=== PATIENT | female | born 1970 | race Caucasian/White ===

== ENCOUNTER 2016-10-10 08:51 | Emergency (ER) | payer OTHER ==
[2016-10-10] MEDS ORDERED: NS 0.9% 1000 ML* 1,000 ML IV ONE (09:19)
[2016-10-10] MEDS ORDERED: Acetaminophen TAB* 325 MG PO ONE (09:19)
[2016-10-10 09:34] LABS: Hematocrit 36 % (35-47); Hemoglobin 12.4 g/dl (12.0-16.0); Mean Corpuscular HGB Conc 34 g/dl (31-36); Mean Corpuscular Hemoglobin 28 pg (27-31); Mean Corpuscular Volume 83 fL (80-97); Mean Platelet Volume 10 um3 (7.4-10.4); Red Blood Count 4.37 10^6/ul (4.0-5.4); Red Cell Distribution Width 14 % (10.5-15); White Blood Count 7.8 10^3/ul (3.5-10.8)
[2016-10-10 09:49] LABS: ALT 15 U/L (7-52); AST 25 U/L (13-39); Alkaline Phosphatase 46 U/L (34-104); Anion Gap 5 mmol/L (2-11); BUN/Creatinine Ratio 20.7 (8-20); Blood Urea Nitrogen 17 mg/dL (6-24); C Reactive Protein < 1.00 mg/L (< 5.00); CO2 Carbon Dioxide 27 mmol/L (22-32); Calcium 9.4 mg/dL (8.6-10.3); Chloride 103 mmol/L (101-111); EGFR African American 96.5 (>60); EGFR Non-African American 75.1 (>60); Globulin 2.9 g/dL (2-4); Glucose 99 mg/dL (70-100); Lipase 47 U/L (11.0-82.0); Potassium 4.4 mmol/L (3.5-5.0); Sodium 135 mmol/L (133-145); Total Protein 6.9 g/dL (6.4-8.9)
[2016-10-10 10:05] LABS: Urine Bilirubin Negative (Negative); Urine Glucose Negative (Negative); Urine Nitrite Negative (Negative)
--- NOTE | 2016-10-10 10:05 | RAD ---
INDICATION: LEFT flank pain. Possible urolithiasis. Recent fall. Possible sacroiliac joint pathology. COMPARISON: June 20, 2015 RIGHT upper quadrant ultrasound. TECHNIQUE: Multidetector CT images were obtained from the lung bases to the ischial tuberosities. Evaluation of the viscera is limited without IV contrast. Multiplanar reformation. REPORT: Unremarkable visualized inferior thorax. The unenhanced liver, gallbladder, pancreas, and spleen are unremarkable. Small sliding type hiatal hernia. No CT abnormality of the small bowel. Unremarkable retrocecal appendix most conspicuous on coronal reformatted images 31-33. Moderate stool in the colon. No suspicious finding of the colon. Physiologic small volume of free pelvic fluid. Negative for free air or hernias. Unremarkable adrenal glands. Unremarkable kidneys, ureters, and partially distended urinary bladder. Negative for hydronephrosis or visualized urolithiasis. Unremarkable anteverted uterus and adnexal regions. No lymphadenopathy visualized. Negative for lumbar sacral spine or pelvic fracture or articular malalignment. No suspicious focal osseous lesions. Negative for superficial or deep soft tissue plane hematoma. IMPRESSION: 1. Normal appendix documented. 2. Negative for urolithiasis or hydronephrosis. 3. Physiologic small volume of free pelvic fluid. 4. Negative for fracture or articular malalignment within the [id number].
[2016-10-10 11:16] VITALS: BP 110/70
--- NOTE | 2016-10-10 11:21 | ED ---
Back Pain - HPI Summary HPI Summary: Pt here w/ Lt flank pain since 900 last night. Constant but worse w/ movements. Painful on car ride over. Denies urinary sx. Drink many caffeinated beverages per day, mostly coffee and iced tea. Reports she's cut down on soda - only 20oz of pepsi per day now. No known injury - sits for many hours at work. Denies numbness, tingling, weakness into LE's. No h/o back issues although reports a h/ o falling on this side in April 2016 (slipped on ice) - no residual issues then. - History of Current Complaint Chief Complaint: EDFlankPain Stated Complaint: LT FLANK PAIN Time Seen by Provider: 10/10/16 09:03 Hx Obtained From: Patient Pain Intensity: 2 Pain Scale Used: 0-10 Numeric - Allergies/Home Medications Allergies/Adverse Reactions: Allergies Allergy/AdvReac Type Severity Reaction Status Date / Time Aspirin Allergy Unknown Verified 02/04/16 06:45 Reaction Details Bupropion [From Wellbutrin] Allergy Unknown Verified 02/04/16 06:45 Reaction Details Ibuprofen Allergy Swelling Verified 02/04/16 06:45 Venlafaxine [From Effexor] Allergy Unknown Verified 02/04/16 06:45 Reaction Details PMH/Surg Hx/FS Hx/Imm Hx Previously Healthy: Yes Endocrine/Hematology History: Reports: Hx Thyroid Disease - HYPO-ON MEDICATION FOR Denies: Hx Diabetes Cardiovascular History: Reports: Other Cardiovascular Problems/Disorders - HISTORY OF LOW BLOOD PRESSURE Denies: Hx Hypertension, Hx Pacemaker/ICD GI History: Denies: Hx Crohn's Disease, Hx Diverticulosis, Hx Gall Bladder Disease, Hx Gastroesophageal Reflux Disease, Hx Gastrointestinal Bleed, Hx Hiatal Hernia, Hx Irritable Bowel, Hx Ulcer History: Denies: Hx Kidney Infection, Hx Kidney Stones Sensory History: Reports: Hx Contacts or Glasses - CONTACTS-INSTRUCTS GIVEN Denies: Hx Hearing Aid Opthamlomology History: Reports: Hx Contacts or Glasses - CONTACTS-INSTRUCTS GIVEN Neurological History: Reports: Hx Migraine - MONTHLY,TREATS WITH ALEVE, Other Neuro Impairments/Disorders - ADD Psychiatric History: Denies: Hx Panic Disorder - Surgical History Surgery Procedure, Year, and Place: 1991 LT KNEE ARTHROSCOPIC. LEFT WRIST CARPAL TUNNEL RELEASE Hx Anesthesia Reactions: Yes - 06/2014-LOW BLOOD PRESSURE AND TOOK A FEW DAYS TO FEEL BACK TO NORMAL Infectious Disease History: No Infectious Disease History: Denies: Traveled Outside the [place] in Last 30 Days - Social History Occupation: Employed Full-time Alcohol Use: Rare Alcohol Amount: wine Substance Use Type: Reports: None Smoking Status (MU): Never Smoked Tobacco Have You Smoked in the Last Year: No Review of Systems Constitutional: Negative Negative: Fever, Chills Negative: Sore Throat Negative: Chest Pain Negative: Shortness Of Breath, Cough Gastrointestinal: Other - see HPI Positive: Nausea - possibly from pain at times. Negative: Vomiting, Diarrhea Positive: flank pain. Negative: burning, dysuria, discharge, frequency, hematuria, incontinence, urgency Musculoskeletal: Other - see HPI Skin: Negative Negative: Rash, Bruising Neurological: Negative Negative: Weakness, Paresthesia, Numbness Psychological: Normal All Other Systems Reviewed And Are Negative: Yes Physical Exam Triage Information Reviewed: Yes Vital Signs On Initial Exam: Initial Vitals Temp Pulse Resp BP Pulse Ox 97.8 F 79 20 100/73 100 10/10/16 08:53 10/10/16 08:53 10/10/16 08:53 10/10/16 08:53 10/10/16 08:53 Vital Signs Reviewed: Yes Appearance: Positive: Well-Appearing, Pain Distress - mild to moderate Skin: Positive: Warm, Dry - no erythema, no ecchymosis, no lesions over affected area Head/Face: Positive: Normal Head/Face Inspection Eyes: Positive: Normal, EOMI, Conjunctiva Clear - anicteric sclera ENT: Positive: Hearing grossly normal, Pharynx normal - mucosa moist Respiratory/Lung Sounds: Positive: Clear to Auscultation, Breath Sounds Present. Negative: Rales, Rhonchi, Wheezes Cardiovascular: Positive: Normal, RRR, Pulses are Symmetrical in both Upper and Lower Extremities Abdomen Description: Positive: Soft, CVA Tenderness (L), Other: - pain radiates to Lt flank when LLQ is palpated - no rebounding. Negative: CVA Tenderness (R) , Distended, Guarding Bowel Sounds: Positive: Present Pelvic Exam: Positive: other - deferred - denies d/c, irritation Musculoskeletal: Positive: Limited @ - pain w/ lumbar flexion/extension, rotation - can single leg stand w/o difficulty; spinous pp NTTP Neurological: Positive: Normal, Sensory/Motor Intact, Alert, Oriented to Person Place, Time, CN Intact II-III, Reflexes Intact Psychiatric: Positive: Normal - concerned - Loyd Coma Scale Coma Scale Total: 15 Diagnostics - Vital Signs Vital Signs Temp Pulse Resp BP Pulse Ox 10/10/16 11:14 98.3 F 72 18 110/70 10/10/16 08:55 97.1 F 79 20 100/73 100 10/10/16 08:53 97.8 F 79 20 100/73 100 - Laboratory Lab Results: Lab Results 10/10/16 10/10/16 10/10/16 Range/Units 09:02 09:24 09:24 WBC 7.8 (3.5-10.8) 10^3/ul RBC 4.37 (4.0-5.4) 10^6/ul Hgb 12.4 (12.0-16.0) g/dl Hct 36 (35-47) % MCV 83 (80-97) fL MCH 28 (27-31) pg MCHC 34 (31-36) g/dl RDW 14 (10.5-15) % Plt Count 170 (150-450) 10^3/ul MPV 10 (7.4-10.4) um3 Neut % (Auto) 58.9 (38-83) % Lymph % (Auto) 29.2 (25-47) % Clare % (Auto) 8.8 (1-9) % Eos % (Auto) 2.4 (0-6) % Baso % (Auto) 0.7 (0-2) % Absolute Neuts (auto) 4.6 (1.5-7.7) 10^3/ul Absolute Lymphs (auto) 2.3 (1.0-4.8) 10^3/ul Absolute Monos (auto) 0.7 (0-0.8) 10^3/ul Absolute Eos (auto) 0.2 (0-0.6) 10^3/ul Absolute Basos (auto) 0.1 (0-0.2) 10^3/ul Absolute Nucleated RBC 0.01 10^3/ul Nucleated RBC % 0.1 Sodium 135 (133-145) mmol/L Potassium 4.4 (3.5-5.0) mmol/L Chloride 103 (101-111) mmol/L Carbon Dioxide 27 (22-32) mmol/L Anion Gap 5 (2-11) mmol/L BUN 17 (6-24) mg/dL Creatinine 0.82 (0.51-0.95) mg/dL Est GFR ( Amer) 96.5 (>60) Est GFR (Non-Af Amer) 75.1 (>60) BUN/Creatinine Ratio 20.7 H (8-20) Glucose 99 (70-100) mg/dL Lactic Acid (0.5-2.0) mmol/L Calcium 9.4 (8.6-10.3) mg/dL Total Bilirubin 0.20 (0.2-1.0) mg/dL AST 25 (13-39) U/L ALT 15 (7-52) U/L Alkaline Phosphatase 46 (34-104) U/L C-Reactive Protein < 1.00 (< 5.00) mg/L Total Protein 6.9 (6.4-8.9) g/dL Albumin 4.0 (3.2-5.2) g/dL Globulin 2.9 (2-4) g/dL Albumin/Globulin Ratio 1.4 (1-3) Lipase 47 (11.0-82.0) U/L Urine Color Yellow Urine Appearance Cloudy Urine pH 6.0 (5-9) Ur Specific Yale 1.019 (1.010-1.030) Urine Protein Negative (Negative) Urine Ketones Trace H (Negative) Urine Blood Negative (Negative) Urine Nitrate Negative (Negative) Urine Bilirubin Negative (Negative) Urine Urobilinogen Negative (Negative) Ur Leukocyte Esterase Negative (Negative) Urine Glucose Negative (Negative) 10/10/16 Range/Units 09:24 WBC (3.5-10.8) 10^3/ul RBC (4.0-5.4) 10^6/ul Hgb (12.0-16.0) g/dl Hct (35-47) % MCV (80-97) fL MCH (27-31) pg MCHC (31-36) g/dl RDW (10.5-15) % Plt Count (150-450) 10^3/ul MPV (7.4-10.4) um3 Neut % (Auto) (38-83) % Lymph % (Auto) (25-47) % Clare % (Auto) (1-9) % Eos % (Auto) (0-6) % Baso % (Auto) (0-2) % Absolute Neuts (auto) (1.5-7.7) 10^3/ul Absolute Lymphs (auto) (1.0-4.8) 10^3/ul Absolute Monos (auto) (0-0.8) 10^3/ul Absolute Eos (auto) (0-0.6) 10^3/ul Absolute Basos (auto) (0-0.2) 10^3/ul Absolute Nucleated RBC 10^3/ul Nucleated RBC % Sodium (133-145) mmol/L Potassium (3.5-5.0) mmol/L Chloride (101-111) mmol/L Carbon Dioxide (22-32) mmol/L Anion Gap (2-11) mmol/L BUN (6-24) mg/dL Creatinine (0.51-0.95) mg/dL Est GFR ( Amer) (>60) Est GFR (Non-Af Amer) (>60) BUN/Creatinine Ratio (8-20) Glucose (70-100) mg/dL Lactic Acid 0.9 (0.5-2.0) mmol/L Calcium (8.6-10.3) mg/dL Total Bilirubin (0.2-1.0) mg/dL AST (13-39) U/L ALT (7-52) U/L Alkaline Phosphatase (34-104) U/L C-Reactive Protein (< 5.00) mg/L Total Protein (6.4-8.9) g/dL Albumin (3.2-5.2) g/dL Globulin (2-4) g/dL Albumin/Globulin Ratio (1-3) Lipase (11.0-82.0) U/L Urine Color Urine Appearance Urine pH (5-9) Ur Specific Yale (1.010-1.030) Urine Protein (Negative) Urine Ketones (Negative) Urine Blood (Negative) Urine Nitrate (Negative) Urine Bilirubin (Negative) Urine Urobilinogen (Negative) Ur Leukocyte Esterase (Negative) Urine Glucose (Negative) Result Diagrams: 10/10/16 09:24 10/10/16 09:24 Lab Statement: Any lab studies that have been ordered have been reviewed, and results considered in the medical decision making process. Back Pain Course/Dx - Course Course Of Treatment: Pt presents w/ acute onset of Lt flank pain w/o known injury. After studies were performed and neg, it is suspected this is a VERONICA injury as she reports sitting many hours at work. Education w/ tx plan provided (See d/c). Reviewed danger s/sx of when to return to ED. - Diagnoses Provider Diagnoses: Sacroiliitis, Muscle spasm Discharge - Discharge Plan Condition: Stable Disposition: HOME Patient Education Materials: Sacroiliitis (ED), Muscle Spasm (ED) Forms: *Work Release Referrals: James Dumont MD [Medical Doctor] - Additional Instructions: You appear to have a muscle spasm of your iliopsoas m on the Left. Unfortunately , you do not tolerate NSAID's well so acetaminophen was given with some relief. It is advised that you also try heat, hydration and gentle stretches along with your flexeril at home as needed. Rest. Follow-up with PCP this week if pain persists as you may benefit from physical therapy, massage, etc. *If you develop numbness or weakness of your lower extremity and/or incontinence of your bowels/bladder, return to ED
== END 2016-10-10 11:14 | disposition home or self-care (01) ==
LOC: ED 08:51
DX: M46.1 Sacroiliitis, not elsewhere classified (principal); R10.84 Generalized abdominal pain; R25.2 Cramp and spasm
CPT/HCPCS: 36415; 74176; 80053; 81003; 83605; 83690; 85025; 86140; 99282; A9270-GY